=== PATIENT | female | born 1960 | race Caucasian/White ===

== ENCOUNTER → 2019-08-15 | Outpatient (CLI) | payer OTHER ==
[~2019-08-15] MED LIST: CARB200 PO; CEFU500 PO; CIPR500 PO; DOXY100 PO; GABA250SO PO; GABA600 PO; HYDACE5 PO; HYDACE5325 PO; IBUP200 PO; KETO10 PO; SULTRISS PO; TIMO.25OPS OS; TRAV.004OP OS
[2019-08-20 16:06] LABS: HPV 16 Negative (Negative); HPV 18 Negative (Negative); HPV OTHER HR TYPES Negative (Negative)
== END | disposition home or self-care (01) ==
LOC: EDSEX 18:54 → LAB SHORT 18:54 → LAB 18:54
PROVIDERS: Physician Assistant
DX: Z12.4 Encounter for screening for malignant neoplasm of cervix (principal)
CPT/HCPCS: 87624; G0145